=== PATIENT | female | born 1960 | race Caucasian/White ===

== ENCOUNTER 2024-01-08 20:17 | Emergency (ER) | payer OTHER, BC ==
[~2024-01-08] VITALS: Ht 154.9 cm; Wt 61.2 kg
[2024-01-08 20:56] VITALS: BP_SYST 150; PULSE 56; RESP 16; TEMP 97.4; O2SAT 100
[2024-01-08] MEDS: KETOROLAC TROMETHAMINE 30 MG VIAL IM ONE (22:50)
[2024-01-08] MEDS ORDERED: CYCL10TA24 PO (22:57)
[2024-01-08] MEDS ORDERED: ACET-2634 PO (22:57)
[2024-01-08] MEDS: CYCLOBENZAPRINE HCL 10 MG TABLET (FLEXERIL) PO ONE (23:08)
[2024-01-08 23:18] VITALS: BP_SYST 142; PULSE 58; RESP 16; TEMP 98.2; O2SAT 100
== END 2024-01-08 23:17 | disposition home or self-care (01) ==
LOC: SED 20:17
DX: S16.1XXA Strain of muscle, fascia and tendon at neck level, initial encounter (principal); M54.9 Dorsalgia, unspecified; R03.0 Elevated blood-pressure reading, without diagnosis of hypertension; V49.49XA Driver injured in collision with other motor vehicles in traffic accident, initial encounter; Y93.89 Activity, other specified; Y92.89 Other specified places as the place of occurrence of the external cause; Y99.8 Other external cause status
CPT/HCPCS: 99283; 71045; 96372; J1885